=== PATIENT | female | born 1985 | race Caucasian/White ===

== ENCOUNTER 2024-04-05 13:43 | Inpatient (IN) ==
[2024-04-06] MEDS ORDERED: LIDOCAINE 1% LOCAL 20 ML VIAL INFIL PRN (10:00)
[2024-04-06] MEDS ORDERED: OXYTOCIN 30 UNITS/NSS 30 UNITS/500 ML BAG IV PRN ×2 (10:00→19:13)
--- NOTE | 2024-04-06 10:11 | History & Physical Report ---
Date of Service April 06, 2024 Assessment & Plan (1) Encounter for induction of labor: Plan: 38 years at 41 weeks of POG, here for IOL. Exam: 3.5 cm dilated, 80% effaced, HS -2 Complete NST( Cat 1 so far) and will induce with Oxytocin as per protocol. (2) Drug use affecting : Plan: Under Suboxone (3) Tobacco smoking affecting : Admission and Anticipated Discharge Date Admission Date: April 06, 2024 History of Present Illness Chief Complaint: Here for IOL planned. Primary Care Provider: SHERIN Metz Patient is a 38 yo female currently at 41 WGA with an LINDA 03/30/24 as determined by [facility] ( Uncertain LMP, believes conceived early August 2023), here for induction for postdated . No contractions; movement present; No fluid loss; No bloody show External FHT and external uterine monitors used; category 1 tracing so far; normal FHT variability Had regular appointments with OB. Significant Issues : - AMA: Weekly NST's 36 weeks;normal so far. - Current every day smoker Occasional MJ use--anxiety +UDS marijuana 01/27/24 -Subutex daily-Dr. Godinez -Hx PPROM with delivery 36 weeks -Hx Hepatitis C- 2021 *Hep C RNA Not Detected -New FOB Labs: Blood type: B +ve. Antibody screen: Neg Hgb: 10.5( 01/26) Plt: 268 (01/26) Rubella: Immune VDRL/RPR: -Ve Gonorrhea: -Ve Chlamydia: -ve HIV: NR HbSAg: NR GBS: Neg( 03/02) Other screens: Not available( Late 1st ANC) Allergies Allergy/AdvReac Type Severity Reaction Status Date / Time Penicillins Allergy Unknown Unknown Verified 04/06/24 10:35 Home Medications Medication Instructions Recorded Confirmed Type PNV no.[id number] 1 tab PO DAILY 01/19/24 04/06/24 History [ Gummies] buprenorphine HCl [Subutex] 8 mg sublingual 3XD 01/19/24 04/06/24 History Patient History Medical History (Updated 04/06/24 @ 15:09 by Juan Miguel Jorgensen MD) Encounter for pre-operative examination Status post elective Drug addiction heroin subutex maintenance x 3 years History of chicken pox Hepatitis C 2021 Family History Father Multiple sclerosis Denies family history of Ovarian cancer Breast cancer Colorectal cancer Social History Smoking Status: Current every day smoker Tobacco Type: Cigarettes Cigarettes Per Day: 10; Do You Dip or Chew Tobacco: No; Hx Alcohol Use: No Hx Substance Use: Yes Last Used Substance: Days (ago) Preferred Language: Danish Communication Ability: Effective Front Desk Manager Required: No Beliefs That Will Affect Care: None marital status: Single marital status details: Raquel Cline (33) [phone] Current Living Situation: Family and Significant Other Current Living Situation Comment: lives with mom, step dad, fob, son, dog, cats-fob changing litter current occupational status: unemployed Other Information That Helps Us Care for You: No Feels Safe at Home: Yes Safety Concerns: Feels Safe At This Time Review of Systems Denies fever, chills, sweats. Denies SOB, difficulty breathing, chest pain, palpitations, and chest pressure. Denies breast pain. Denies dysuria. Denies headache or changes in vision. Physical Exam Physical Exam: General: Alert and oriented. No acute distress CV: Regular rate and rhythm. No murmurs. Respiratory: CTA bilaterally. No rhonchi, wheezes, or crackles. No increased work of breathing. Abdomen: Gravid; Soft, nontender upon palpation Pelvic: Dilated 3.5 cm; Effacement 80%; Station -[address] Vasquez. Lower extremities: No LE edema. No deep calf pain. Astrid's negative bilaterally. Supervising Physician Co-Signing Physician Notes Resident Physician Supervision Note: I interviewed and examined the patient. Discussed with Dr. Rodriguez and agree with findings and plan as documented in the note. Any exceptions or clarifications are listed here: Admit to L&D for IOL. Pitocin, AROM, epidural plans. Documented By: Hortencia Vasquez DO Resident Activity Tracking Resident Involvement: Resident Care Provided Care Provided: OB Delivery
[2024-04-06 10:38] LABS: Hemoglobin 11.2 g/dl (12.0-16.0); Mean Corpuscular Hemoglobin 30.4 pg (25.0-34.0); Mean Corpuscular Hgb Conc 33.9 g/dL (32.0-36.0); Mean Corpuscular Volume 89.7 fL (80.0-100.0); Mean Platelet Volume 10.3 fL (9.4-12.4); Platelet Count 266 K/uL (130-400); RDW Coefficient of Variation 14.8 % (11.5-14.5); RDW Standard Deviation 48.3 fL (36.4-46.3); Red Blood Count 3.68 M/uL (4.20-5.40); White Blood Count 8.02 K/ul (4.8-10.8)
[2024-04-06 11:00] LABS: Amphetamines+Metham, Urine Neg (Neg); Barbiturates, Urine Neg (Neg); Benzodiazepine, Urine Neg (Neg); Cocaine, Urine Neg (Neg); Fentanyl, Urine Neg (Neg); MDMA (Ecstacy), Urine Neg (Neg); Marijuana, Urine Neg (Neg); Methadone, Urine Neg (Neg); Opiate, Urine Neg (Neg); Phencyclidine, Urine Neg (Neg)
[2024-04-06] MEDS: OXYTOCIN 30 UNITS/NSS 30 UNITS/500 ML BAG IV PRN (11:17)
[2024-04-06] MEDS ORDERED: SODIUM CHLORIDE 0.9% 500 ML IV SCH (11:45)
[2024-04-06] MEDS: SODIUM CHLORIDE 0.9% 1,000 ML IV SCH (13:01)
[2024-04-06] MEDS ORDERED: ONDANSETRON INJ 2 MG/ML 2 ML VIAL IV PRN (15:08)
[2024-04-06] MEDS ORDERED: NALOXONE HCL 1 MG in SODIUM CHLORIDE 0.9% 1,000 ML IV PRN (15:08)
[2024-04-06] MEDS ORDERED: SODIUM CHLORIDE 0.9% PF INJ 10 ML VIAL EPI PRN (15:08)
[2024-04-06] MEDS ORDERED: diphenhydrAMINE 50 MG/ML VIAL IV PRN (15:08)
[2024-04-06] MEDS ORDERED: NALOXONE HCL 0.4 MG/1 ML VIAL/CARP IV PRN (15:08)
[2024-04-06] MEDS ORDERED: fentANYL 2 MCG/ML BUPIVacaine 0.125%-NSS 100ML BAG EPI PRN (15:08)
[2024-04-06] MEDS ORDERED: NALBUPHINE HCL INJ 10 MG/ML AMP IV PRN (15:08)
[2024-04-06] MEDS ORDERED: ePHEDrine sulfate 50 MG/ML AMP IV PRN (15:08)
[2024-04-06] MEDS ORDERED: BUPIVACAINE 0.25% PF 30 ML VIAL EPI PRN (15:08)
[2024-04-06] MEDS ORDERED: fentaNYL citrate PF 100 MCG/2 ML VIAL EPI PRN (15:08)
[2024-04-06] MEDS ORDERED: LIDOCAINE 2% MPF LOCAL 5 ML VIAL EPI PRN (15:08)
[2024-04-06] MEDS ORDERED: ROPIVACAINE 0.5% PF 5 MG/ML 20 ML VIAL EPI PRN (15:08)
--- NOTE | 2024-04-06 15:09 | Anesthesiology Consultation ---
Date of Service April 06, 2024 Assessment & Plan (1) Encounter for pre-operative examination: Chart Review Chart Review: Patient NOT seen in Pre Admission Testing and Acceptable Risk for Labor Epidural Consults Requested none History Height/Weight Height: 5 ft Weight: 84.368 kg Allergies Allergy/AdvReac Type Severity Reaction Status Date / Time Penicillins Allergy Unknown Unknown Verified 04/06/24 10:35 Medications Home Medications Medication Instructions Recorded Confirmed Last Taken PNV no.[id number] 1 tab PO DAILY 01/19/24 04/06/24 04/06/24 08:00 [ Gummies] buprenorphine HCl [Subutex] 8 mg sublingual 3XD 01/19/24 04/06/24 04/06/24 08:00 Active Medications Generic Name Dose Route Start Last Admin Trade Name Freq PRN Reason Stop Dose Admin Oxytocin 30 units in 500 mls @ 9 mls/hr 04/06/24 10:00 04/06/24 14:00 Pitocin 30 Units/Nss IV 04/08/24 09:59 0.54 units/hr .Q24H PRN 9 mls/hr Labor Induction/Augmentation Titration Protocol 0.54 UNITS/HR Sodium Chloride 1,000 mls @ 80 mls/hr 04/06/24 12:45 04/06/24 15:00 Nss IV 04/07/24 12:44 50 mls/hr .[id number] DC Infusion Past Medical History Medical History (Updated 04/06/24 @ 15:09 by Juan Miguel Jorgensen MD) Encounter for pre-operative examination Status post elective Drug addiction heroin subutex maintenance x 3 years History of chicken pox Hepatitis C 2021 Exercise / Class Metabolic Activity II 4-5 Yardwork/Stairs/Walk up hill Past Family History Family History Father Multiple sclerosis Denies family history of Ovarian cancer Breast cancer Colorectal cancer Past Anesthesia History No Hx of Anesthesia Complications and No Family Hx of Anesthesia Complications History of PONV No Hx of PONV and No Hx of Motion Sickness Social History Smoking Status: Current every day smoker Smoking cigarettes per day: 10 Do You Dip or Chew Tobacco: No Hx Alcohol Use: No Hx Substance Use: Yes substance use type: former substance user and marijuana Last Used Substance: Days (ago) Physical Exam Vital Signs Last Vital Signs Temp 36.9 C 04/06/24 13:30 Pulse 76 04/06/24 15:40 Resp 18 04/06/24 10:17 BP 117/65 04/06/24 15:40 Pulse Ox 98 04/06/24 15:39 Testing Laboratory Results 04/06/24 10:10 Blood Type B Positive 04/06/24 10:10 Antibody Screen NEGATIVE 04/06/24 10:10
[2024-04-06] MEDS: BUPIVACAINE 0.25% PF 30 ML VIAL ONE (15:36)
[2024-04-06] MEDS: fentaNYL citrate PF 100 MCG/2 ML VIAL ONE (15:36)
[2024-04-06] MEDS: fentANYL 2 MCG/ML BUPIVacaine 0.125%-NSS 100ML BAG ONE (15:37)
[2024-04-06] MEDS: LIDOCAINE 2%/EPINEPHRINE 1:200,000 20 ML PF ONE (15:49)
[2024-04-06] MEDS: buprenorphine HCL 8 MG SUBL SL SCH (15:54)
[2024-04-06] MEDS: fentaNYL citrate PF 100 MCG/2 ML VIAL EPI STA (15:55)
[2024-04-06] MEDS: BUPIVACAINE 0.25% PF 30 ML VIAL EPI STA (15:55)
[2024-04-06] MEDS: SODIUM CHLORIDE 0.9% PF INJ 10 ML VIAL ONE (15:55)
[2024-04-06] MEDS: LIDOCAINE 2%/EPINEPHRINE 1:200,000 20 ML PF EPI STA (15:55)
[2024-04-06] MEDS: SODIUM CHLORIDE 0.9% PF INJ 10 ML VIAL EPI STA (15:56)
[2024-04-06] MEDS ORDERED: NURSING L&D Epidural Breakthrough Pain Update ONE (17:57)
[2024-04-06] MEDS ORDERED: LIDOCAINE 2%/EPINEPHRINE 1:200,000 20 ML PF ONE (18:29)
[2024-04-06] MEDS ORDERED: ROPIVACAINE 0.5% 5 MG/ML 30 ML VIAL ONE (18:29)
--- NOTE | 2024-04-06 19:11 | Delivery Summary ---
Vaginal Delivery Summary Date of Service April 06, 2024 Vaginal Delivery Summary and 1st Degree LAC Vaginal Delivery Summary: Pre-delivery diagnoses: 38yo @ 41 0/7, IOL, late care, MA, smoker, marijuana use, Subutex use d/t IV drug history, h/o Hep C Post-delivery diagnoses: same Procedure: spontaneous vaginal delivery Surgeon: Hortencia Vasquez DO Complications: none Findings: Viable female . Apgars: 8/9. Weight pending, please see n ursery records Estimated QBL: 75ml Description of delivery: The patient progressed to complete with epidural anesthesia. She then began to push. She spontaneously vaginally delivered a viable from the cephalic presentation. The head delivered in LG position, then rotated to NORBERTO. The anterior shoulder delivered, then anterior arm, followed by the posterior shoulder, followed by the body. The baby was placed on mother's abdomen and a spontaneous cry was heard. Delayed cord clamping was employed, and the cord was doubly clamped and cut. Cord blood was obtained. The placenta was delivered spontaneously intact with a 3-vessel cord. The uterus and vagina were swept of clots and debris. IV pitocin was given. The uterus became firm. The cervix, vagina, and perineum were inspected. First degree perineal laceration noted and repaired with 3-0 Vicryl in standard fashion. Excellent hemostasis was observed. The mother and baby are recovering in stable and good condition in the room. Sponge, needle and instrument counts were correct x 2. Hortencia Vasquez DO [facility] Vaginal Delivery Charge Vaginal Delivery Codes: 46534 global code for the antepartum, delivery, and post- Delivery Type Details: and 1st Degree LAC
[2024-04-06] MEDS ORDERED: HYDROCORTISONE ACETATE 25 MG SUPP PR PRN (19:13)
[2024-04-06] MEDS ORDERED: bisacodyL 10 MG SUPP PR PRN (19:13)
[2024-04-06] MEDS ORDERED: DIPHTHER/TETAN/PERTUS Vaccine (Tdap, Adol/Adult) 0.5mL IM ONE (19:13)
--- NOTE | 2024-04-06 19:56 | Anesthesia Procedure Note ---
Date of Service April 06, 2024 Anesthesia Post Epidural Note Vital Signs Vital Signs: Temp Pulse Resp BP Pulse Ox 36.9 C 91 H 20 115/55 L 97 04/06/24 17:15 04/06/24 19:54 04/06/24 18:30 04/06/24 19:47 04/06/24 19:54 Pain Intensity Bilateral Abdomen: Pain Intensity: 0 Notes Mental Status: alert / awake / arousable and participated in evaluation Patient Amnestic to Procedure: No Nausea / Vomiting: adequately controlled Pain: adequately controlled Airway Patency, RR, SpO2: stable & adequate BP & HR: stable & adequate Hydration State: stable & adequate Neuraxial Anesthesia: was administered and sensory block is resolving Anesthetic Complications: no major complications apparent and Pt Satisfied with anesthetic care Epidural: Removed without complications and With tip intact
[2024-04-06] MEDS: ePHEDrine sulfate 50 MG/ML AMP ONE (22:04)
[2024-04-06] MEDS: DOCUSATE SODIUM 100 MG CAP PO SCH (22:39)
[2024-04-06] MEDS: BENZOCAINE 20% SPRY 85 APPLN/85 GM CAN EXT PRN (23:59)
[2024-04-07] MEDS: IBUPROFEN 600 MG TAB PO PRN (00:21)
[2024-04-07] MEDS: ACETAMINOPHEN 325 MG TAB PO PRN (05:21)
[2024-04-07 06:09] LABS: Hematocrit (blood only) 35.2 % (37.0-47.0); Hemoglobin 11.5 g/dl (12.0-16.0)
--- NOTE | 2024-04-07 06:29 | Obstetrical Progress Note ---
Date of Service April 07, 2024 Assessment & Plan (1) Vaginal delivery: Plan: Both mom and baby doing well. Mom's vitals stable. Has not decided if she will go home by evening or stay one more night. Admission and Anticipated Discharge Date Admission Date: April 06, 2024 Supervising Physician Co-Signing Physician Notes Resident Physician Supervision Note: I interviewed and examined the patient. Discussed with Dr. Rodriguez and agree with findings and plan as documented in the note. Any exceptions or clarifications are listed here: PPD1 doing well, routine care. Documented By: Hortencia Vasquez, DO Subjective 1st PPD Day following with Laceration in 38 years at 41 week POG. No active complains Both mom and baby doing well. Pain: Mild, intermittent Lochia: Moderate Diet: Regular Ob diet Gas: Passing Peeing: Normal, no bladder distension Ambulation: Normally Review of Systems Review of Systems: No SOB, chest pain, leg pain No dizziness, headache, palpitation No Blurring of vision , fever Physical Exam Physical Exam: General: Alert and oriented. No acute distress. CVS: Looks well perfused Respiratory: No increased work of breathing. Abdomen: Bowel sound +. Soft, nontender Uterus: Fundus firm and palpable few cm below the umbilicus. Lower extremities: No LE edema. No deep calf pain. Results & Data Vital Signs (Past 12 Hours) Vital Signs Temp Pulse Pulse Resp BP BP Pulse Ox 04/07/24 04:00 36.3 C L 61 16 115/69 97 04/06/24 23:00 36.4 C L 77 18 103/65 96 04/06/24 21:31 77 105/59 L 04/06/24 21:16 75 103/54 L 04/06/24 21:02 75 111/51 L 04/06/24 21:00 18 04/06/24 20:46 69 112/58 L 04/06/24 20:31 76 115/58 L 04/06/24 20:30 18 04/06/24 20:16 75 108/56 L 04/06/24 20:14 77 96 04/06/24 20:09 76 98 04/06/24 20:07 84 93 04/06/24 20:04 70 95 04/06/24 20:01 74 106/55 L 04/06/24 20:00 18 04/06/24 19:59 72 96 04/06/24 19:54 91 H 97 04/06/24 19:51 68 94 04/06/24 19:49 69 95 04/06/24 19:47 73 115/55 L 04/06/24 19:45 18 04/06/24 19:44 70 96 04/06/24 19:39 76 96 04/06/24 19:34 69 96 04/06/24 19:32 73 101/57 L 04/06/24 19:30 18 04/06/24 19:29 70 96 04/06/24 19:24 71 97 04/06/24 19:23 68 101/59 L 04/06/24 19:19 68 96 04/06/24 19:15 18 04/06/24 19:14 73 96 04/06/24 19:09 71 96 04/06/24 19:04 76 96 04/06/24 19:02 75 108/58 L 04/06/24 19:00 36.7 C 18 04/06/24 18:59 73 97 04/06/24 18:54 78 98 04/06/24 18:49 84 97 04/06/24 18:44 81 96 04/06/24 18:39 83 97 04/06/24 18:38 96 H 85 L 04/06/24 18:34 95 H 97 04/06/24 18:33 106 H 131/80 04/06/24 18:30 20 04/06/24 18:30 20 04/06/24 18:29 71 96 O2 Del Method 04/07/24 04:00 Room Air 04/06/24 23:00 Room Air 04/06/24 21:31 04/06/24 21:16 04/06/24 21:02 04/06/24 21:00 04/06/24 20:46 04/06/24 20:31 04/06/24 20:30 04/06/24 20:16 04/06/24 20:14 04/06/24 20:09 04/06/24 20:07 04/06/24 20:04 04/06/24 20:01 04/06/24 20:00 04/06/24 19:59 04/06/24 19:54 04/06/24 19:51 04/06/24 19:49 04/06/24 19:47 04/06/24 19:45 04/06/24 19:44 04/06/24 19:39 04/06/24 19:34 04/06/24 19:32 04/06/24 19:30 04/06/24 19:29 04/06/24 19:24 04/06/24 19:23 04/06/24 19:19 04/06/24 19:15 04/06/24 19:14 04/06/24 19:09 04/06/24 19:04 04/06/24 19:02 04/06/24 19:00 04/06/24 18:59 04/06/24 18:54 04/06/24 18:49 04/06/24 18:44 04/06/24 18:39 04/06/24 18:38 04/06/24 18:34 04/06/24 18:33 04/06/24 18:30 04/06/24 18:30 04/06/24 18:29 Resident Activity Tracking Resident Involvement: Resident Care Provided Care Provided: OB Delivery
[2024-04-07] MEDS: PRENATAL VITAMIN 1 TAB PO SCH (08:20)
[2024-04-07] MEDS: NICOTINE 14 MG/24 HR PATCH TD SCH (12:51)
[2024-04-07] MEDS: bisacodyL 5 MG TABEC PO SCH (20:53)
[2024-04-08 00:51] VITALS: O2SAT 95
--- NOTE | 2024-04-08 07:56 | Obstetrical Progress Note ---
Date of Service April 08, 2024 Assessment & Plan (1) care and examination: stable, ready for dc today, will go to nesting, , rhpos, ri. instructions reviewed. f/u 6wk pp check. Subjective Ambulation: ambulating normally Voiding: no voiding problems Diet Tolerance:: regular diet Lochia:: Small Feeding Type:: breast feeding no bleeding issues. Constitutional: + as per Subjective / HPI Physical Exam Constitutional WD/WN, vitals as above Respiratory normal respiratory effort, lungs clear to auscultation Cardiovascular Rate/Rhythm: regular rate and regular rhythm Gastrointestinal (Abdomen) Inspection/Auscultation: abdomen normal to inspection Percussion/Palpation: abdomen soft Fundus firm 2cm down Musculoskeletal nt calves no edema Neurologic grossly normal Psychiatric A+Ox3, euthymic affect Results & Data Vital Signs (Past 12 Hours) Vital Signs Temp Pulse Resp BP Pulse Ox O2 Del Method 04/08/24 00:25 98.1 F 67 16 113/71 95 Room Air 04/07/24 20:55 97.9 F 73 18 107/60 96 Room Air
[2024-04-08 10:50] VITALS: BP 108/67; PULSE 80; RESP 22; TEMP 97.9
== END 2024-04-08 18:01 | disposition home or self-care (01) | DRG 806 ==
LOC: 4S1 04-06 09:52 → 4E2 04-06 22:10